=== PATIENT | female | born 1975 | race Caucasian/White ===

== ENCOUNTER 2016-09-13 21:08 | Emergency (ER) | payer MEDICAID ==
--- NOTE | 2016-09-13 21:50 | ED Physician Chart ---
Chief Complaint/HPI - Patient Information Date Seen:: 09/13/16 Time Seen:: 21:30 Chief Complaint:: low back pain History of Present Illness:: Patient was seen at another hospital 8 days ago for vomiting. The urinary tract infection was diagnosed and she was given IV Rocephin and IV Levaquin and discharged with a prescription for Levaquin. Patient's had a fever yesterday and today. Her temperature today was 101.4 Vitals:: Vital Signs - 8 hr 09/13/16 21:15 Temp 98.2 F HR 82 RR 18 BP 119/77 O2 Sat % 100 Historian:: Patient Review:: Nurse's Note Reviewed Review of Systems - Review of Systems General/Constitutional: Fever Skin: No skin lesions Head: No headache Eyes: No loss of vision ENT: No earache Neck: No neck pain Cardio Vascular: No chest pain Pulmonary: No SOB GI: Vomiting G/U: Other (see history) Musculoskeletal: Bone or joint pain, Back pain Endocrine: No polyuria, No polydipsia Psychiatric: No prior psych history, No depression, No anxiety Hematopoietic: No bruising Allergic/Immuno: No urticaria Neurological: No headache Past Medical History - Past Medical History Past Medical History: Other (chronic back pain) Family History: HTN Social History: Smoker, Alcohol, Other (smokes 6-7 cigarettes a day and drinks alcohol occasionally) Surgical History: other (right clavicle and thoracic spine following trauma) Psychiatricy History: Depression Medication: Reviewed Family Medical History - Family Member Father History Unknown: Yes Ethnicity: Living Status: Still Living Hx Family Cancer: Yes Hx Family Hypertension: Yes Physical Exam - Physical Examination General/Constitutional: Well-developed, well-nourished, Alert, No distress Head: Atraumatic Eyes: Lids, conjuctiva normal, PERRL Skin: Nl inspection, No rash, No skin lesions, No ecchymosis ENMT: External ears, nose nl, Lips, teeth, gums nl Neck: No nuchal rigidity Respiratory: Nl effort/Exclusion, Clear to Auscultation Cardio Vascular: RRR GI: No organomegaly, No hernia, Normal BS's, Nondistended Other GI comments:: Diffuse tenderness Extremities: No edema Neuro/Psych: No focal deficits Other Misc comments:: Tenderness across low back at L3 to L5 levels Labs/Radiology/EKG Results - Lab Results Comments:: Laboratory Results - last 24 hr 09/13/16 09/13/16 21:30 21:30 Urine Source [place] Urine Color YELLOW Urine Clarity SLIGHTLY CLOUDY Urine pH 6.5 Ur Specific [place] 1.015 Urine Protein NEGATIVE Urine Glucose (UA) NEGATIVE Urine Ketones NEGATIVE Urine Blood SMALL H Urine Nitrate NEGATIVE Urine Bilirubin NEGATIVE Urine Urobilinogen 0.2 Ur Leukocyte Esterase NEGATIVE Urine RBC 2-5 Urine WBC 0-2 Ur Epithelial Cells OCCASIONAL Urine Bacteria FEW Urine Test NEGATIVE Assessment - Assessment General Assessment: Patient's low back pain appears to be caused by an exacerbation of her chronic low back pain and not a kidney infection. Her fever is probably secondary to an acute viral syndrome. ED Septic Shock - . Is Septic Shock (SBP<90, OR Lactate>4 mmol\L) present?: No - <6hrs of presentation: Vital Signs: Vital Signs - 8 hr 09/13/16 21:15 Temp 98.2 F HR 82 RR 18 BP 119/77 O2 Sat % 100 Reassessment (Disposition) - Reassessment Reassessment Condition:: Unchanged - Diagnosis Diagnosis:: acute viral syndrome; low back pain - Aftercare/Follow up Instructions Aftercare/Follow-Up Instructions:: Refer to Discharge Instructions - Patient Disposition Discharge/Transfer:: Home Condition at Disposition:: Stable, Unchanged ED Discharge Plan - Patient Disposition Instructions: Back Pain, Adult, Viral Infections, [id number] Additional Instructions: follow up with primary doctor within 1-2 days. return to er for worsening symptoms.
[2016-09-13] MEDS ORDERED: Maalox 30 mL Cup ONE (21:54)
[2016-09-13 22:19] LABS: URINE BILIRUBIN NEGATIVE (NEGATIVE); URINE BLOOD SMALL (NEGATIVE); URINE COLOR YELLOW; URINE GLUCOSE (UA) NEGATIVE (NEGATIVE); URINE KETONE NEGATIVE (NEGATIVE); URINE PH 6.5
[2016-09-13 22:20] LABS: URINE BACTERIA FEW /hpf (NONE SEEN); URINE EPITHELIAL CELLS OCCASIONAL /lpf (FEW); URINE PROTEIN NEGATIVE (NEGATIVE); URINE UROBILINOGEN 0.2 E.U./dL (0.2 - 1.0); URINE WBC 0-2 /hpf (0-5)
== END 2016-09-13 22:35 | disposition home or self-care (01) ==
LOC: ER 21:08
DX: B34.9 Viral infection, unspecified (principal); M54.5 Low back pain; F17.210 Nicotine dependence, cigarettes, uncomplicated
CPT/HCPCS: 81001-TC; 81025-TC; Q0162; Z7502